=== PATIENT | male | born 1990 | race African-American/Black ===

== ENCOUNTER 2018-05-06 16:37 | Emergency (ER) | payer BC ==
[~2018-05-06] VITALS: Ht 172.7 cm; Wt 102.1 kg
[2018-05-06 17:00] VITALS: BP 123/67
== END 2018-05-06 19:35 | disposition home or self-care (01) ==
LOC: ER 16:42
DX: S86.911A Strain of unspecified muscle(s) and tendon(s) at lower leg level, right leg, initial encounter (principal); X58.XXXA Exposure to other specified factors, initial encounter; Y93.89 Activity, other specified; Y99.8 Other external cause status; Y92.89 Other specified places as the place of occurrence of the external cause
CPT/HCPCS: 73562

== ENCOUNTER 2019-10-16 08:53 | Emergency (ER) | payer BC, MEDICAID ==
[~2019-10-16] VITALS: Ht 172.7 cm; Wt 244.9 kg
[2019-10-16 09:14] VITALS: BP 129/73
== END 2019-10-16 10:53 | disposition home or self-care (01) ==
LOC: ER 08:53
DX: J20.9 Acute bronchitis, unspecified (principal); R04.2 Hemoptysis; F17.210 Nicotine dependence, cigarettes, uncomplicated
CPT/HCPCS: 71046

== ENCOUNTER 2022-04-16 10:36 | Emergency (ER) | payer MEDICAID ==
[~2022-04-16] VITALS: Ht 172.7 cm; Wt 113.0 kg
[2022-04-16 12:45] LABS: Hematocrit 43.1 % (41.0-53.0); Hemoglobin 14.7 g/dL (13.5-17.5); Mean Corpuscular Hemoglobin 27.1 pg (28.0-32.0); Mean Corpuscular Hgb Conc. 34.2 g/dL (32.0-36.0); Mean Corpuscular Volume 79.3 fL (80.0-100.0); Red Blood Cells 5.44 10^6/uL (4.5-5.90); Red Cell Distribution Width 13.9 % (11.8-14.3); White Blood Cell 6.3 10^3/uL (4.4-10.8)
[2022-04-16 12:45] LABS: Urine Bacteria NONE SEEN /hpf (None Seen); Urine Blood TRACE /uL (Negative); Urine Mucus FEW (None Seen); Urine Specific Gravity 1.035 (1.001-1.035); Urine WBC 8 /hpf (0 - 3)
[2022-04-16 12:49] LABS: Basophils % (manual) 0 (0.0-2.0); Blast Cells 0; Eosinophils % (manual) 0 (0-7); Metamyelocytes % 0; Myelocytes % 0; Promyelocytes % 0; Reactive Lymphocytes 0
[2022-04-16 12:56] LABS: Albumin 4.1 g/dL (3.4-5.0); BUN/Creatinine Ratio 6.5; Calcium 9.1 mg/dL (8.5-10.1); Potassium 3.7 mmol/L (3.5-5.1)
[2022-04-16 12:59] LABS: Bilirubin, Total 0.3 mg/dL (0.2-1.0); Total Protein 7.1 g/dL (6.4-8.2)
[2022-04-16 13:23] LABS: Band Neutrophils % (manual) 2; Lymphocytes % (manual) 12 (10.0-50.0); Monocytes % (manual) 20 (0-12)
[2022-04-16 14:55] VITALS: BP 132/68
== END 2022-04-16 14:57 | disposition home or self-care (01) ==
LOC: ER 10:46
DX: U07.1 COVID-19 (principal); F17.210 Nicotine dependence, cigarettes, uncomplicated
CPT/HCPCS: 36415; 80053; 81001; 85007; 85027

== ENCOUNTER 2023-03-06 12:06 | Emergency (ER) | payer MEDICAID ==
[~2023-03-06] VITALS: Ht 172.7 cm; Wt 104.5 kg
[2023-03-06 13:07] VITALS: BP 135/76; PULSE 72; RESP 16; TEMP 98.1; O2SAT 95
[2023-03-06] MEDS ORDERED: PRED20TA2 PO (13:24)
[2023-03-06] MEDS ORDERED: FLUT1SPR5 (13:24)
== END 2023-03-06 13:33 | disposition home or self-care (01) ==
LOC: ER 12:06
DX: R09.81 Nasal congestion (principal); F17.210 Nicotine dependence, cigarettes, uncomplicated; F15.90 Other stimulant use, unspecified, uncomplicated; Z79.899 Other long term (current) drug therapy

== ENCOUNTER 2023-07-15 09:53 | Emergency (ER) | payer SELFPAY ==
[~2023-07-15] VITALS: Ht 172.7 cm; Wt 105.0 kg
[~2023-07-15 09:53] MED LIST: FLUT1SPR5; PRED20TA2 PO
[2023-07-15 10:07] VITALS: BP 135/90; PULSE 90; RESP 18; O2SAT 99
[2023-07-15] MEDS ORDERED: DICY10CA PO (10:58)
[2023-07-15] MEDS ORDERED: ZOFR4T PO (10:58)
[2023-07-15] MEDS ORDERED: ONDANSETRON ODT 4 MG TAB PO ONE (11:00)
[2023-07-15] MEDS ORDERED: DICYCLOMINE HCL 10 MG CAP PO ONE (11:00)
== END 2023-07-15 11:23 | disposition home or self-care (01) ==
LOC: ER 09:53
DX: K52.9 Noninfective gastroenteritis and colitis, unspecified (principal); F17.210 Nicotine dependence, cigarettes, uncomplicated; F12.10 Cannabis abuse, uncomplicated
CPT/HCPCS: 99283; J0500; Q0162

== ENCOUNTER 2023-07-23 05:06 | Emergency (ER) | payer SELFPAY ==
[~2023-07-23] VITALS: Ht 172.7 cm; Wt 104.5 kg
[~2023-07-23 05:06] MED LIST changes: +DICY10CA PO; +ZOFR4T PO
[2023-07-23 05:16] VITALS: BP 121/70; PULSE 81; RESP 16; TEMP 99.8; O2SAT 97
[2023-07-23] MEDS ORDERED: AZIT500T66 PO (06:44)
[2023-07-23] MEDS ORDERED: IBUP-1456 PO (06:44)
== END 2023-07-23 07:19 | disposition home or self-care (01) ==
LOC: ER 05:06
DX: J03.90 Acute tonsillitis, unspecified (principal); F17.210 Nicotine dependence, cigarettes, uncomplicated; Z79.1 Long term (current) use of non-steroidal anti-inflammatories (NSAID); Z79.2 Long term (current) use of antibiotics; Z79.899 Other long term (current) drug therapy